=== PATIENT | female | born 1960 | race African-American/Black ===

== ENCOUNTER 2025-01-03 11:52 | Emergency (ER) | payer OTHER, SELFPAY ==
[2025-01-03 11:56] VITALS: BP 146/86
--- NOTE | 2025-01-03 12:19 | ED.GENMED ---
History of Present Illness
General
Chief Complaint: Cough
Source: patient
Exam Limitations: none
Time Seen by Provider: 01/03/25 12:03
History of Present Illness
History of Present Illness:
64yoF with a history of hyperlipidemia, GERD, IBS presenting with her family members for evaluation of URI symptoms. Patient was having allergy testing done 4 days ago and was in the allergy office for several hours. She started to experience some
nasal congestion while at the appointment. She then became sick with a cough, fatigue, body aches, and diarrhea. She had a subjective fever last night but did not check her temperature. She describes feeling a rattling in her chest and she states
her cough sounds similar to whooping cough. Patient is also experiencing intermittent sharp chest pains. No sick contacts.
Phy Exam
General Physical Exam
General Presentation: well appearing and no apparent distress
General Skin: warm and dry
General Habitus: normal
General Mental: alert
ENT Exam
ENT Exam: TM's normal, pharynx normal and normocephalic
Cardiovascular Exam
Cardiovascular Exam: regular rate/rhythm
Pulmonary Exam
Pulmonary Exam: lungs clear, no respiratory distress, no rales, no crackles, no rhonchi, no wheezing and other (+L sided chest wall tenderness)
Gastrointestinal Exam
Gastrointestinal Exam: non tender, soft and non distended
Neurological Exam
Neurological Exam: alert
[place] Coma Scale
Eye Opening: Spontaneous
Verbal Response: Oriented
Motor Response: Obeys Commands
GCS Total Score: 15
Skin Exam
Skin Exam: normal color and warm/dry
Psychiatric Exam
Psychiatric Exam: normal mood/affect
Course
Orders/Labs/Results
Orders:
Orders
01/03/25 12:18
0.9% Sodium Chloride 1000 ml [Nss] 1,000 ml IV BOLUS
CR Chest - 2 Views Urgent
Comment:
Reason For Exam: cough
01/03/25 12:19
Electrocardiogram (*1) Urgent
Reason for Study: Chest Pain
EKG- Treatment ONCE
01/03/25 12:37
COVID-19 Antigen Urgent
Source: Nasal Swab
Complete Blood Count/With Diff Urgent
Comprehensive Metabolic Panel Urgent
Troponin I Urgent
Influenza A+B Rapid Molecular Urgent
[facility] Source: Nasal Swab
Specimen Description:
01/03/25 14:30
Bordetella PCR Urgent
[facility] Source: Nasalpharynx
Specimen Description:
Abnormal Lab Results
01/03/25
12:37
WBC 3.7 L 10^3/uL
(4.8-10.8)
MCHC 32.4 L g/dL
(33.0-37.0)
Plt Count 117 L 10^3/uL
(130-400)
MPV 12.2 H fL
(7.4-10.4)
Absolute Lymphs (auto) 1.1 L 10^3/uL
(1.2-3.4)
Monocytes % 16.3 H %
(1.7-9.3)
Eosinophils % 8.3 H %
(0-6)
Chloride 109 H mmol/L
(98-107)
01/03/25 12:37
01/03/25 12:37
Vital Signs
Initial and Last Documented VS:
Initial Vital Signs
Temp Pulse Resp BP Pulse Ox
97.4 F 65 20 146/86 100
01/03/25 11:56 01/03/25 11:56 01/03/25 11:56 01/03/25 11:56 01/03/25 11:56
Last Documented Vital Signs
Temp Pulse Resp BP Pulse Ox
97.4 F 57 13 154/67 99
01/03/25 11:56 01/03/25 14:30 01/03/25 14:30 01/03/25 14:16 01/03/25 14:30
MDM/Problems Addressed
Differential Diagnosis Includes:
64yoF here with cough, fatigue, diarrhea x 4 days. Also c/o sharp chest pains. VSS and oxygen saturation 100% on room air. She is well appearing in no distress. There is reproducible chest wall tenderness on exam. Differential diagnosis includes but
is not limited to: viral illness, bronchitis, pneumonia, costochondritis, myocarditis, less likely ACS
Initial ED plan: Check cardiac labs, COVID/flu swab, EKG, and CXR. IV fluid bolus.
*Pulse Oximetry
SaO2: 100
Oxygen Mode of Delivery: Room air
Patient hypoxic: no (100%)
*EKG
Interpreted by ED Provider?: Yes
EKG Intrepretation Date: 01/03/25
Heart Rate: 54
Rate: bradycardiac
Rhythm: sinus
[place]: normal axis
Interval: normal interval
QRS Pattern: normal QRS
Ischemia: other (nonspecific T wave changes)
*Critical Care Note
Total Time (30-74mins, 75-104mins- exclusive of procedures): Not Applicable
Update Note
Update Note:
Mild leukopenia and thrombocytopenia noted on exam which I suspect is 2/2 to underlying viral illness. COVID/flu testing negative. EKG shows no ST changes and troponin WNL. CXR is clear. Patient states that her cough sounds like whooping cough, will
send Bordetella PCR for completeness. Supportive care discussed and advised f/u with PCP. ED return precautions reviewed and she was discharged in stable condition.
ED Attending Note
-
Portions of this chart may have been created with voice recognition software.� Occasional wrong word or��sound alike� substitutions may have occurred due to the inherent limitations of voice recognition software.
Discharge Plan
Departure
Patient Disposition: Home (Routine Discharge)
Date of Disposition: 01/03/25
Time of Disposition: 14:20
Patient with high blood pressure during this ER visit?: Yes
Discharge Problem:
Viral illness
Instructions: Viral Upper Respiratory Infection, Adult (DC)
Activity Restrictions/Additional Instructions:
Drink plenty of fluids and rest. Use honey for cough. Take Tylenol and/or ibuprofen as needed for body aches/headaches.
Please follow-up with your family doctor this week. Return to the ER with any new or worsening symptoms.
Interventions
Interventions:
*Risk Screen - Suicide Last Done: 01/03/25 12:00
*General Assessment Last Done: 01/03/25 12:55
*Neglect/Abuse Screening Last Done: 01/03/25 13:23
*ED- Fall Risk Assessment Last Done: 01/03/25 12:55
*ED COVID-19 Vaccine History Last Done: 01/03/25 12:55
*Nursing Disposition Last Done: 01/03/25 14:40
ED- Pulmonary Assessment Last Done: 01/03/25 12:56
Discharge Date and Time
Discharge Date/Time: 01/03/25 14:30
Print Language: ARMENIAN
[2025-01-03 12:36] VITALS: BP 130/69
[2025-01-03] MEDS: NSS 1000 IV (12:54)
[2025-01-03 12:55] VITALS: BMI 24.6
[2025-01-03 12:56] LABS: Hematocrit 37.6 % (37.0-47.0); Hemoglobin 12.2 g/dL (12.0-16.0); Mean Corp Hgb Conc. 32.4 g/dL (33.0-37.0); Mean Corpuscular Volume 87.6 fL (81.0-99.0); Nucleated Red Blood Cells % 0 %; Platelet Count 117 10^3/uL (130-400); Red Cell Dist. Width 14.0 % (11.5-14.5)
[2025-01-03 13:00] VITALS: BP 143/70
[2025-01-03 13:12] LABS: COVID-19 Antigen Negative (Negative)
[2025-01-03 13:16] LABS: ALT (SGPT) 17 U/L (0-35); AST (SGOT) 28 U/L (14-36); Albumin 4.2 g/dl (3.5-5.0); Alkaline Phosphatase 70 U/L (38-126); Blood Urea Nitrogen 13 mg/dl (7-17); Calcium 9.6 mg/dl (8.4-10.2); Carbon Dioxide 30 mmol/L (22-30); Chloride 109 mmol/L (98-107); Estimated Creatinine Clearance 65 ml/min; Glucose 94 mg/dl (70-99); Potassium 4.5 mmol/L (3.5-5.1); Sodium 142 mmol/L (135-145); Total Protein 6.8 g/dl (6.3-8.2); eGFR > 60.00
[2025-01-03 13:29] LABS: Troponin I < 0.012 ng/ml
[2025-01-03 14:16] VITALS: BP 154/67
== END 2025-01-03 14:30 | disposition home or self-care (01) ==
LOC: EMR 11:52
PROVIDERS: Physician Assistant; EMERGENCY PHYSICIAN Emergency Medicine; FAMILY PHYSICIAN Internal Medicine
DX: B34.9 Viral infection, unspecified (principal); E78.00 Pure hypercholesterolemia, unspecified; K21.9 Gastro-esophageal reflux disease without esophagitis; K58.0 Irritable bowel syndrome with diarrhea
CPT/HCPCS: 99283; 96360; 71046; 80053; 84484; 85025; 87502; 87798; 87811; 93005